=== PATIENT | female | born 1985 | race Caucasian/White ===

== ENCOUNTER 2024-02-28 10:08 | Day surgery (SDC) | payer BC | END 2024-02-28 10:09 | disposition home or self-care (01) | LOC: CSHCT 10:08 | PROVIDERS: ATTEND Neurological Surgery | PROC: B00BYZZ Plain Radiography of Spinal Cord using Other Contrast (ICD-10-PCS; principal; 2024-02-28) | DX: M50.30 Other cervical disc degeneration, unspecified cervical region (principal); Z91.040 Latex allergy status; Z88.5 Allergy status to narcotic agent; Z88.1 Allergy status to other antibiotic agents; Z79.899 Other long term (current) drug therapy | CPT/HCPCS: 62284; 72052; 72126; 77003; 82040; 82042; 82784; 83916 ==

== ENCOUNTER 2024-04-25 12:49 | Outpatient (CLI) | payer BC | END 2024-04-25 12:50 | disposition home or self-care (01) | LOC: CSHULT 12:49 | PROVIDERS: ATTEND Family Medicine | DX: R22.1 Localized swelling, mass and lump, neck (principal) | CPT/HCPCS: 76536 ==